=== PATIENT | male | born 1945 | race Caucasian/White ===

== ENCOUNTER 2016-08-14 07:12 | Day surgery (SDC) | payer OTHER ==
[2016-08-09 15:07] VITALS: BMI 27.3
[2016-08-14] MEDS ORDERED: LIDOCAINE HCL/PF 2% SDV 5ML VIAL ONE (07:18)
[2016-08-14] MEDS ORDERED: PROPOFOL 20 ML ONE ×2 (07:18)
[2016-08-14 08:48] VITALS: TEMP 97.6
[2016-08-14 09:34] VITALS: BP 124/62; PULSE 56
== END 2016-08-14 09:36 | disposition home or self-care (01) ==
LOC: FASU-ENDO 07:12
PROVIDERS: ATTEND Internal Medicine Gastroenterology
PROC: 0DJD8ZZ Inspection of Lower Intestinal Tract, Via Natural or Artificial Opening Endoscopic (ICD-10-PCS; principal; 2016-08-14 08:26)
DX: Z12.11 Encounter for screening for malignant neoplasm of colon (principal); K57.30 Diverticulosis of large intestine without perforation or abscess without bleeding

== ENCOUNTER 2018-04-19 02:21 | Emergency (ER) | payer OTHER ==
[2018-04-19 02:28] VITALS: BP 158/55; PULSE 57; TEMP 97.3; BMI 27.6
[2018-04-19] MEDS ORDERED: DEXAMETHASONE SOD PHOSPHATE 10 MG/1 ML VIAL IM ONE (02:47)
[2018-04-19] MEDS ORDERED: DEXAMETHASONE SOD PHOSPHATE 10 MG/1 ML VIAL ONE (02:48)
--- NOTE | 2018-04-19 02:48 | PDOC ---
History of Present Illness - General Chief Complaint: Back Pain Stated Complaint: BACK PAIN Time Seen by Provider: 04/19/18 02:34 History Source: Patient Exam Limitations: No Limitations - History of Present Illness Initial Comments: 04/19/18 02:51 back pain, has not improved with diclofenac radiating to L foot Timing/Duration: constant, getting worse, other (2 days) Severity: moderate Modifying Factors: improves with: movement. worse with: immobilization Associated Symptoms: denies: fever/chills, nausea/vomiting, shortness of breath , weakness Past History - Past Medical History Allergies/Adverse Reactions: Allergies Allergy/AdvReac Type Severity Reaction Status Date / Time No Known Allergies Allergy Unverified 08/09/16 15:07 Home Medications: Ambulatory Orders Diclofenac Sodium [Voltaren -] 75 mg PO BID 04/19/18 Omeprazole 40 mg PO DAILY 04/19/18 Anemia: No Asthma: No Cancer: No Cardiac Disorders: No CVA: No COPD: No CHF: No Dementia: No Diabetes: No GI Disorders: No Disorders: No HTN: No (PAST HISTORY) Hypercholesterolemia: No Liver Disease: No Seizures: No Thyroid Disease: No Other medical history: DJD LOWER SPINE - Surgical History Abdominal Surgery: No Appendectomy: No Cardiac Surgery: No Cholecystectomy: No Lung Surgery: No Neurologic Surgery: No Orthopedic Surgery: No - Suicide/Smoking/Psychosocial Hx Smoking History: Unknown if ever smoked Have you smoked in the past 12 months: No Hx Alcohol Use: No Drug/Substance Use Hx: No Substance Use Type: None Hx Substance Use Treatment: No Review of Systems - Review of Systems All Other Systems: Reviewed and Negative *Physical Exam - Vital Signs Last Vital Signs Temp Pulse Resp BP Pulse Ox 97.3 F L 57 L 16 158/55 L 100 04/19/18 02:24 04/19/18 02:24 04/19/18 02:24 04/19/18 02:24 04/19/18 02:24 - Physical Exam General Appearance: Yes: Nourished, Appropriately Dressed HEENT: positive: Normal Voice Neck: negative: Decreased range of motion Respiratory/Chest: positive: Lungs Clear Cardiovascular: positive: Regular Rhythm Gastrointestinal/Abdominal: negative: Tender, Distended, Rebound, Mass Musculoskeletal: positive: Normal Inspection, Decreased Range of Motion. negative: CVA Tenderness, Muscle Spasm, Vertebral Tenderness Extremity: positive: Normal Capillary Refill, Normal Inspection Integumentary: positive: Normal Color Neurologic: positive: Fully Oriented, Motor Strength 5/5 Moderate Sedation - Procedure Monitoring Vital Signs: Procedure Monitoring Vital Signs Temperature 97.3 F L 04/19/18 02:24 Pulse Rate 57 L 04/19/18 02:24 Respiratory Rate 16 04/19/18 02:24 Blood Pressure 158/55 L 04/19/18 02:24 O2 Sat by Pulse Oximetry (%) 100 04/19/18 02:24 Medical Decision Making - Medical Decision Making 04/19/18 02:54 sciatica refractory to diclofeanc dex 2 percocets instructed to fu with PCP to coordinate further care *DC/Admit/Observation/Transfer Diagnosis at time of Disposition: Sciatica Qualifiers: Laterality: left Qualified Code(s): M54.32 - Sciatica, left side - Discharge Dispostion Disposition: HOME Condition at time of disposition: Stable - Referrals Referrals: Graham Barrientos MD [Primary Care Provider] - Call tomorrow - Patient Instructions Printed Discharge Instructions: DI for Sciatica - Post Discharge Activity
== END 2018-04-19 03:09 | disposition home or self-care (01) ==
LOC: FER 02:21
PROC: 3E023GC Introduction of Other Therapeutic Substance into Muscle, Percutaneous Approach (ICD-10-PCS; principal; 2018-04-19)
DX: M54.32 Sciatica, left side (principal)
CPT/HCPCS: 99282-25; J1100

== ENCOUNTER 2018-06-12 18:11 | Emergency (ER) | payer OTHER ==
[2018-06-12] MEDS ORDERED: RANITIDINE HCL 150 MG TABLET (FP) PO ONE (18:36)
[2018-06-12] MEDS ORDERED: METOCLOPRAMIDE HCL 10 MG TABLET (FP) PO ONE ×2 (18:36→19:00)
--- NOTE | 2018-06-12 18:36 | PDOC ---
History of Present Illness - General History Source: Patient Exam Limitations: No Limitations - History of Present Illness Initial Comments: 06/12/18 18:55 The patient is a 72 year old male, with a significant past medical history of cataracts who presents to the emergency department with hiccups followed by intermittent GERD since last night. The patient notes he tried all the home remedies such as: laying upside down, holding his breath, eating peanut butter, and drinking 10 sips of water upon his arrival to the ED. Patient notes his pain is alleviated when staying still and its triggered by moving left or right. Patient notes he previously had these symptoms but they usually went away after 20 minutes. The patient denies chest pain, shortness of breath, headache and dizziness. Allergies: NKDA Past surgical history: None reported Social history: None reported <Ashia Thompson - Last Filed: 06/12/18 18:59> - General History Source: Patient Exam Limitations: No Limitations <Yaquelin Solano - Last Filed: 06/13/18 10:36> - General Chief Complaint: Shortness of Breath Stated Complaint: HICCUPS Time Seen by Provider: 06/12/18 18:22 Past History <Ashia Thompson - Last Filed: 06/12/18 18:59> - Past Medical History Anemia: No Asthma: No Cancer: No Cardiac Disorders: No CVA: No COPD: No CHF: No Dementia: No Diabetes: No GI Disorders: No Disorders: No HTN: No (PAST HISTORY) Hypercholesterolemia: No Liver Disease: No Seizures: No Thyroid Disease: No - Surgical History Abdominal Surgery: No Appendectomy: No Cardiac Surgery: No Cholecystectomy: No Lung Surgery: No Neurologic Surgery: No Orthopedic Surgery: No - Suicide/Smoking/Psychosocial Hx Smoking History: Unknown if ever smoked Have you smoked in the past 12 months: No Hx Alcohol Use: No Drug/Substance Use Hx: No Substance Use Type: None Hx Substance Use Treatment: No <Yaquelin Solano - Last Filed: 06/13/18 10:36> - Past Medical History Allergies/Adverse Reactions: Allergies Allergy/AdvReac Type Severity Reaction Status Date / Time No Known Allergies Allergy Verified 06/12/18 18:12 Home Medications: Ambulatory Orders Ascorbic Acid [Vitamin C] 1,000 mg PO DAILY 06/12/18 Cyanocobalamin [Vitamin B12 -] 1,000 mcg PO DAILY 06/12/18 Review of Systems - Review of Systems Able to Perform ROS?: Yes Comments:: 06/12/18 18:55 GENERAL/CONSTITUTIONAL: No fever or chills. No weakness. HEAD, EYES, EARS, NOSE AND THROAT: No change in vision. No ear pain or discharge. No sore throat. CARDIOVASCULAR: No chest pain or shortness of breath. RESPIRATORY: (+) hiccups, (+) Intermittent GERD. No cough, wheezing, or hemoptysis. GASTROINTESTINAL: No nausea, vomiting, diarrhea or constipation. GENITOURINARY: No dysuria, frequency, or change in urination. MUSCULOSKELETAL: No joint or muscle swelling or pain. No neck or back pain. SKIN: No rash NEUROLOGIC: No headache, vertigo, loss of consciousness, or change in strength/ sensation. ENDOCRINE: No increased thirst. No abnormal weight change. HEMATOLOGIC/LYMPHATIC: No anemia, easy bleeding, or history of blood clots. ALLERGIC/IMMUNOLOGIC: No hives or skin allergy. All Other Systems: Reviewed and Negative <Ashia Thompson - Last Filed: 06/12/18 18:59> *Physical Exam - Vital Signs Last Vital Signs Temp Pulse Resp BP Pulse Ox 97.2 F L 75 18 159/82 97 06/12/18 18:11 06/12/18 18:11 06/12/18 18:11 06/12/18 18:11 06/12/18 18:11 - Physical Exam Comments: 06/12/18 18:56 GENERAL: Awake, alert, and fully oriented, in no acute distress HEAD: No signs of trauma EYES: PERRLA, EOMI, sclera anicteric, conjunctiva clear ENT: Auricles normal inspection, hearing grossly normal, nares patent, oropharynx clear without exudates. Moist mucosa NECK: Normal ROM, supple, no lymphadenopathy, JVD, or masses LUNGS: Breath sounds equal, clear to auscultation bilaterally. No wheezes, and no crackles HEART: Regular rate and rhythm, normal S1 and S2, no murmurs, rubs or gallops ABDOMEN: Soft, nontender, normoactive bowel sounds. No guarding, no rebound. No masses EXTREMITIES: Normal range of motion, no edema. No clubbing or cyanosis. No cords, erythema, or tenderness NEUROLOGICAL: Cranial nerves II through XII grossly intact. Normal speech, normal gait SKIN: Warm, Dry, normal turgor, no rashes or lesions noted. <Ashia Thompson - Last Filed: 06/12/18 18:59> Moderate Sedation - Procedure Monitoring Vital Signs: Procedure Monitoring Vital Signs Temperature 97.2 F L 06/12/18 18:11 Pulse Rate 75 06/12/18 18:11 Respiratory Rate 18 06/12/18 18:11 Blood Pressure 159/82 06/12/18 18:11 O2 Sat by Pulse Oximetry (%) 97 06/12/18 18:11 <Ashia Thompson - Last Filed: 06/12/18 18:59> ED Treatment Course - LABORATORY CBC & Chemistry Diagram: 06/12/18 18:58 06/12/18 18:58 <Yaquelin Solano - Last Filed: 06/13/18 10:36> Medical Decision Making - Medical Decision Making 06/12/18 18:42 Mr Alvarado is a 72 yo M who presents to the ER with a complaint of Hiccups Pt states that he noted these hiccups beginning last night When he changed positions he noted his hiccups worsened He noted gas coming up from the stomach and through the esophagus No abdominal pain No chest pain No shortness of breath Pt has had this in the past but it typically goes away with over the counter treatments He tried that all day but this has not helped Pt came to the ER for assessment and treatment, mostly, he is concerned about cardiac disease On examination Pt is awake and alert Answers questions appropriately RRR CTA B/L No abd tenderness Presentation consistent with hiccups, likely from benign cause (Gerd) I have considered other causes but doubt that patient requires additional work up at this time Stroke/AVM lateral medullary infarction (Wallenberg syndrome), subphrenic abscess, Neoplasm, MS Vagus nerve irritation from Goiter, pharyngitis Gastric distention, [place], pericarditis Pt is very concerned that he is having an [place] Will do: Labs EKG Zantac/Reglan Signed out to Dr Marshall 06/13/18 10:32 <Yaquelin Solano - Last Filed: 06/13/18 10:36> *DC/Admit/Observation/Transfer - Attestations Scribe Attestion: 06/12/18 18:57 Documentation prepared by Ashia Thompson, acting as spanish medical interpreter for Yaquelin Solano MD <Ashia Thompson - Last Filed: 06/12/18 18:59> <Yaquelin Solano - Last Filed: 06/13/18 10:36> Diagnosis at time of Disposition: Hiccups - Discharge Dispostion Disposition: HOME Condition at time of disposition: Stable - Patient Instructions Printed Discharge Instructions: DI for Hiccups Additional Instructions: Your labwork today was notable for a white blood cell count of 20. This is slightly elevated. Please have it checked in 1 week by your primary doctor. Elevated white blood cell counts can sometimes be a sign of an infection and occasionally may be a sign of cancer. If you have persistent hiccups, you will need further evaluation by your primary doctor. Hiccups, while usually benign, can sometimes be a result of serious problems such as gastrointestinal disorders, nervous disorders, or malignancy.
[2018-06-12 18:52] VITALS: BP 159/82; PULSE 75; TEMP 97.2; BMI 28.0
[2018-06-12] MEDS ORDERED: RANITIDINE HCL 150 MG TABLET (FP) ONE (19:00)
[2018-06-12 19:17] LABS: HEMATOCRIT 46.6 % (35.4-49); HEMOGLOBIN 15.1 GM/dl (11.7-16.9); MCH 29.1 pg (25.7-33.7); MCHC 32.4 g/dl (32.0-35.9); MEAN CELL VOLUME 89.8 fl (80-96); PLATELET COUNT 442 K/MM3 (134-434); RBC 5.19 M/mm3 (4.00-5.60); RDW 13.6 % (11.9-15.9); WHITE BLOOD COUNT 20.8 K/mm3 (4.0-10.8)
[2018-06-12 19:25] LABS: ALBUMIN 4.2 g/dl (3.4-5.0); ALK PHOS 76 U/L (45-117); ANION GAP 7 MMOL/L (8-16); BILIRUBIN,TOTAL 0.8 mg/dl (0.2-1); BLOOD UREA NITROGEN 21 mg/dl (7-18); CHLORIDE 104 mmol/L (98-107); CO2 24 mmol/L (21-32); CREATININE 0.8 mg/dl (0.55-1.3); GLUCOSE,RANDOM 98 mg/dl (74-106); POTASSIUM 4.5 mmol/L (3.5-5.1); SGOT/AST 21 U/L (15-37); SGPT/ALT 17 U/L (13-61); SODIUM 135 mmol/L (136-145); TOT PROT 7.1 g/dl (6.4-8.2)
[2018-06-12 20:47] LABS: PLATELET ESTIMATE SLT INCREASE
--- NOTE | 2018-06-12 21:16 | PDOC ---
*Physical Exam - Vital Signs Last Vital Signs Temp Pulse Resp BP Pulse Ox 97.2 F L 75 18 159/82 97 06/12/18 18:11 06/12/18 18:11 06/12/18 18:11 06/12/18 18:11 06/12/18 18:11 ED Treatment Course - LABORATORY CBC & Chemistry Diagram: 06/12/18 18:58 06/12/18 18:58 - ADDITIONAL ORDERS Additional order review: Laboratory Results 06/12/18 02 18:58 18:58 Sodium 135 L Potassium 4.5 Chloride 104 Carbon Dioxide 24 Anion Gap 7 L BUN 21 H Creatinine 0.8 Creat Clearance w eGFR > 60 Random Glucose 98 Calcium 10.0 Total Bilirubin 0.8 AST 21 ALT 17 Alkaline Phosphatase 76 Creatine Kinase 90 Troponin I < 0.03 Total Protein 7.1 Albumin 4.2 06/12/18 18:58 RBC 5.19 MCV 89.8 MCHC 32.4 RDW 13.6 MPV 8.0 Neutrophils % No Result Required. Lymphocytes % No Result Required. - RADIOLOGY Radiology Studies Ordered: Category Date Time Status CHEST PA & LAT [RAD] Stat Radiology 06/12/18 20:04 Taken - Medications Given in the ED: ED Medications Discontinued Medications Generic Name Dose Route Start Last Admin Trade Name Freq PRN Reason Stop Dose Admin Metoclopramide HCl 10 mg 06/12/18 18:36 06/12/18 19:06 Reglan - PO 06/12/18 18:37 10 mg ONCE ONE Administration Ranitidine HCl 150 mg 06/12/18 18:36 06/12/18 19:06 Zantac - PO 06/12/18 18:37 150 mg ONCE ONE Administration Medical Decision Making - Medical Decision Making 06/12/18 21:12 72 M presenting for evaluation of hiccups. EKG and trop negative. Labs unremarkable other than WBC 20. CXR obtained to r/o PNA, no consolidation. Pt denies F/C. No other infectious symptoms. Pt reassessed - now has complete resolution of hiccups. Pt is well appearing, with normal vitals. Clinically stable for DC at this time. I discussed the physical exam findings, ancillary test results and final diagnoses with the patient. I answered all of the patient's questions. The patient was satisfied with the care received and felt comfortable with the discharge plan and treatment plan. The patient agrees to follow up with the primary care physician within 24-72 hours. *DC/Admit/Observation/Transfer Diagnosis at time of Disposition: Hiccups - Discharge Dispostion Disposition: HOME - Referrals - Patient Instructions Printed Discharge Instructions: DI for Hiccups Additional Instructions: Your labwork today was notable for a white blood cell count of 20. This is slightly elevated. Please have it checked in 1 week by your primary doctor. Elevated white blood cell counts can sometimes be a sign of an infection and occasionally may be a sign of cancer. If you have persistent hiccups, you will need further evaluation by your primary doctor. Hiccups, while usually benign, can sometimes be a result of serious problems such as gastrointestinal disorders, nervous disorders, or malignancy. - Post Discharge Activity - Attestations Physician Attestion: 06/12/18 21:16 I, Dr. Faustino Marshall MD, attest that this document has been prepared under my direction and personally reviewed by me in its entirety. I further attest, that it accurately reflects all work, treatment, procedures and medical decision -making performed by me.
--- NOTE | 2018-06-13 16:46 | EKG ---
Test Reason : Blood Pressure : / mmHG Vent. Rate : 070 BPM Atrial Rate : 070 BPM P-R Int : 162 ms QRS Dur : 076 ms QT Int : 392 ms P-R-T Axes : 054 -08 013 degrees QTc Int : 423 ms NORMAL SINUS RHYTHM NORMAL ECG NO PREVIOUS ECGS AVAILABLE Confirmed by JOSE G JACKSON MD ([id number]) on 06/13/2018 4:46:05 PM Referred By: MD NAVA Confirmed By:JOSE G JACKSON MD
== END 2018-06-12 21:39 | disposition home or self-care (01) ==
LOC: FER 18:11
DX: R06.6 Hiccough (principal)
CPT/HCPCS: 36415; 71046-TC-FY; 80053; 82550; 84484; 85025; 93005; 99282-25

== ENCOUNTER 2020-05-12 20:20 | Emergency (ER) | payer OTHER ==
[2020-05-12 20:29] VITALS: BP 175/92; TEMP 98.1; BMI 29.0
[2020-05-12 21:18] LABS: HEMATOCRIT 47.7 % (35.4-49); HEMOGLOBIN 16.2 GM/dl (11.7-16.9); MCH 30.4 pg (25.7-33.7); MEAN CELL VOLUME 89.5 fl (80-96); MEAN PLT VOLUME 8.2 fl (7.5-11.1); PLATELET COUNT 370 K/MM3 (134-434); RBC 5.32 M/mm3 (4.00-5.60); RDW 13.4 % (11.9-15.9); WHITE BLOOD COUNT 10.2 K/mm3 (4.0-10.8)
[2020-05-12 21:33] LABS: ALBUMIN 4.4 g/dl (3.4-5.0); BILIRUBIN,TOTAL 1.3 mg/dl (0.2-1); CREATININE 1.1 mg/dl (0.55-1.3); TOT PROT 7.2 g/dl (6.4-8.2)
[2020-05-12 22:07] LABS: PLATELET ESTIMATE ADEQUATE
[2020-05-12] MEDS ORDERED: FAMOTIDINE 20 MG TABLET PO ONE (23:01)
[2020-05-12] MEDS ORDERED: ASPIRIN 81 MG CHEWABLE TABLETS PO ONE (23:01)
[2020-05-12] MEDS ORDERED: FAMOTIDINE 20 MG TABLET ONE (23:04)
[2020-05-12] MEDS ORDERED: ASPIRIN 81 MG CHEWABLE TABLETS ONE (23:04)
[2020-05-13 05:34] VITALS: PULSE 76
== END 2020-05-12 23:24 | disposition home or self-care (01) ==
LOC: FER 20:20
DX: G45.9 Transient cerebral ischemic attack, unspecified (principal)
CPT/HCPCS: 36415; 70450-TC; 71045-TC-FY; 80053; 82550; 84484; 85025; 93005; 99285-25